=== PATIENT | female | born 1950 | race Caucasian/White ===

== ENCOUNTER 2024-03-04 04:57 | Emergency (ER) | payer MEDICARE, SELFPAY ==
[2024-03-04] VITALS (7 sets, daily range): BP systolic 137–179; BP diastolic 78–96; BMI 24.4
[2024-03-04 05:58] LABS: % Basophils 0.5 % (0-2); % Eosinophils 2.9 % (0-6); % Immature Granulocytes 0.2 % (0-0.5); % Monocytes 8.7 % (1.7-9.3); % Neutrophils 68.7 % (42.2-75.2); Absolute Eosinophils 0.2 10^3/uL (0-0.7); Absolute Lymphocytes 1.2 10^3/uL (1.2-3.4); Absolute Monocytes 0.6 10^3/uL (0.1-0.6); Absolute Neutrophils 4.3 10^3/uL (1.4-6.5); Hematocrit 38.9 % (37.0-47.0); Hemoglobin 13.6 g/dL (12.0-16.0); Mean Corpuscular Hgb 31.3 pg (27.0-31.0); Mean Corpuscular Volume 89.4 fL (81.0-99.0); Mean Platelet Volume 10.3 fL (7.4-10.4); Nucleated Red Blood Cells % 0 %; Platelet Count 263 10^3/uL (130-400); Red Blood Cell Count 4.35 10^6/uL (4.20-5.40); Red Cell Dist. Width 11.9 % (11.5-14.5); White Blood Cell Count 6.3 10^3/uL (4.8-10.8)
[2024-03-04 06:06] LABS: Urine Albumin Negative (Neg - Trace); Urine Bilirubin Negative (Negative); Urine Character Clear (Clear); Urine Color Yellow; Urine Glucose Negative (Negative); Urine Ketone Negative (Negative); Urine Leukocyte 1+ (Negative); Urine Nitrite Negative (Negative); Urine Occult Blood 2+ (Negative); Urine Urobilinogen Negative (Neg - 1+)
[2024-03-04 06:20] LABS: Urine Bacteria Few (Negative); Urine Red Blood Cell 0-2 /HPF (0-2)
--- NOTE | 2024-03-04 06:21 | ED.GENMED ---
History of Present Illness
General
Chief Complaint: Breathing Problem
Source: patient
Time Seen by Provider: 03/04/24 06:01
Travel History
Have you had any contact with someone who has COVID-19?: No
Do you have any symptoms of coronavirus? Fever > 100 degrees, chills, cough, shortness of breath, sore throat, loss of taste or smell, muscle aches, or headache?: No
History of Present Illness
History of Present Illness:
73-year-old female presents emergency room complaining of feeling unwell this morning. She is recovering from a surgical procedure performed on February 06. It was performed at [facility] by a 'pelvic hardwood flooring specialist'. Patient had pelvic floor
sling performed several years ago. After that surgery she had multiple urinary tract infections that was negatively affecting her quality of life. She had a 'release' of this procedure on February 06 with the injection of a bulking agent called
Bulkamid. Since the operation the patient had pelvic fullness and discomfort. She denies any nausea or vomiting. She was seen at an urgent care recently for this pelvic floor pressure and started on Macrobid. This morning when the patient awoke
to take her Macrobid at 4 AM she had an overwhelming sense of anxiety and had something terrible was happening. She thought she was going to . She needed to come get checked out. The only way she can describe the episode was that everything
was slowing down. Currently she has no chest pain, no shortness of breath, no nausea. She does continue to have pelvic fullness.
Past History
Social History
Tobacco: Non-smoker
Alcohol: Occasional
Drug: None
Personal:
Living: with family
Employment: Employed
Family History
Family History: Other (Birthmother with thoracic aneurysm) and Adopted
Phy Exam
Physical Exam
Physical Exam:
General: Awake, Alert, Oriented X3. No acute distress.
Vitals: unremarkable
Head: Atraumatic
Eyes: Pupils equal, EOMI
Throat: Airway intact, no exudates
Neck: Trachea midline
Lungs: Clear and equal b/l
Heart: Regular rate, no murmurs
Abd: Soft, tenderness bilateral lower abdomen, No pulsatile mass
Neuro: Nonfocal
Skin: Warm, dry, no rash
Extremities: pulses equal b/l, no edema
Scores
Heart Failure Risk
Heart Failure Risk Score: Not Applicable
Course
Orders/Labs/Results
Orders:
Orders
03/04/24 05:41
CMP [Comprehensive Metabolic Panel] Urgent
Complete Blood Count/With Diff Urgent
Urinalysis Reflex To Culture Urgent
Date Specimen was Collected: 03/04/24
Time Specimen was Collected: 05:40
Urine Microscopic Reflex Cult Urgent
Urine Culture Urgent
KM Source: U
Specimen Description:
Date Specimen was Collected: 03/04/24
Time Specimen was Collected: 05:40
03/04/24 06:19
CT Abd/pel W Iv And Oral Contr Urgent
Comment:
Reason For Exam: pelvic pain s/p sling release with inj of Bulkamid
Iohexol [Omnipaque] See Protocol PO NOW STA
Abnormal Lab Results
03/04/24
05:41
MCH 31.3 H pg
(27.0-31.0)
Lymphocytes % 19.0 L %
(20.5-51.1)
Ur Occult Blood Reflex 2+ A
(Negative)
Leukocyte Esterase Rfl 1+ A
(Negative)
Urine Bacteria (Reflex) Few A
(Negative)
03/04/24 05:41
03/04/24 05:41
Vital Signs
Initial and Last Documented VS:
Initial Vital Signs
Temp Pulse Resp BP Pulse Ox
98 F 80 24 178/96 98
03/04/24 04:59 03/04/24 04:59 03/04/24 04:59 03/04/24 04:59 03/04/24 04:59
Last Documented Vital Signs
Temp Pulse Resp BP Pulse Ox
98 F 72 17 137/85 94
03/04/24 04:59 03/04/24 10:06 03/04/24 10:06 03/04/24 10:06 03/04/24 10:06
MDM/Problems Addressed
Differential Diagnosis Includes:
uti, constipation, post-op infection, anxiety attack
MDM/Problems Addressed:
Patient presents with pelvic pain. She has a complicated history as noted. Currently she is afebrile. Signs are normal. Labs are reassuring. CT with IV and oral contrast does not show any evidence for acute abnormality. Patient stable for
discharge home. I would continue the course of antibiotics that was started. The urine here fortunately is not highly suggestive of a urinary tract infection.
*Radiology
Radiology exam reviewed: radiology read reviewed
*Pulse Oximetry
Patient hypoxic: no
*Critical Care Note
Total Time (30-74mins, 75-104mins- exclusive of procedures): Not Applicable
Patient Management
Social determinants of health affecting care: Strong social support
ED Attending Note
-
Portions of this chart may have been created with voice recognition software.� Occasional wrong word or��sound alike� substitutions may have occurred due to the inherent limitations of voice recognition software.
Discharge Plan
Departure
Patient Disposition: Home (Routine Discharge)
Date of Disposition: 03/04/24
Time of Disposition: 10:10
Patient with high blood pressure during this ER visit?: Yes
Condition: Good
Discharge Problem:
Acute pelvic pain, female
Instructions: Pelvic Pain (DC)
Prescriptions:
No Action
levothyroxine [Levoxyl] 50 MCG tablet
50 mcg PO DAILY
losartan [Cozaar] 100 MG tablet
100 mg PO DAILY
Nature-Throid 16.25 MG tablet
65 mg PO DAILY
albuterol sulfate [Proventil HFA] 90 MCG/PUFF HFA aerosol inhaler
1 puff inhalation Q4HPRN PRN (Reason: shortness of breath) Qty: 1 0RF
levofloxacin 500 MG tablet
500 mg PO DAILY Qty: 9 0RF
methylprednisolone [Medrol (Arsh)] 4 MG tablets,dose pack
4 tab PO . DIRECT Qty: 1 0RF
amlodipine
2.5 mg PO DAILY
nitrofurantoin
100 mg PO BID
tamsulosin
0.4 mg PO DAILY
Referrals:
PRIVATE,PHYSICIAN [Family Provider] -
Activity Restrictions/Additional Instructions:
Contact the surgeon who performed your procedure.
Interventions
Interventions:
*Risk Screen - Suicide Last Done: 03/04/24 04:59
*General Assessment Last Done: 03/04/24 05:57
*Neglect/Abuse Screening Last Done: 03/04/24 04:59
ED- Fall Risk Assessment Last Done: 03/04/24 06:38
*ED COVID-19 Vaccine History Last Done: 03/04/24 05:58
*Nursing Disposition Last Done: 03/04/24 10:32
FQ-Etqnyw-Eewbuprsem Assessment Last Done: 03/04/24 05:56
ED- Cardiac Assessment Last Done: 03/04/24 05:37
ED- Pulmonary Assessment Last Done: 03/04/24 05:55
Discharge Date and Time
Discharge Date/Time: 03/04/24 10:33
Print Language: Citizen Of [place]
[2024-03-04 06:26] LABS: ALT (SGPT) 17 U/L (0-35); AST (SGOT) 22 U/L (14-36); Albumin 4.4 g/dl (3.5-5.0); Alkaline Phosphatase 79 U/L (38-126); Blood Urea Nitrogen 17 mg/dl (7-17); Calcium 9.7 mg/dl (8.4-10.2); Carbon Dioxide 22 mmol/L (22-30); Chloride 107 mmol/L (98-107); Estimated Creatinine Clearance 90 ml/min; Glucose 97 mg/dl (70-99); Potassium 4.2 mmol/L (3.5-5.1); Sodium 137 mmol/L (135-145); Total Bilirubin 0.8 mg/dl (0.2-1.3); eGFR > 60.00
[2024-03-04] MEDS: OMNIPAQUE 50 ML PO (06:32)
== END 2024-03-04 10:33 | disposition home or self-care (01) ==
LOC: EMR 04:57
PROVIDERS: Student in an Organized Health Care Education/Training Program; EMERGENCY PHYSICIAN Emergency Medicine
DX: R10.2 Pelvic and perineal pain (principal); R03.0 Elevated blood-pressure reading, without diagnosis of hypertension; F41.9 Anxiety disorder, unspecified; Z87.440 Personal history of urinary (tract) infections; Z98.890 Other specified postprocedural states; Z88.2 Allergy status to sulfonamides; Z88.8 Allergy status to other drugs, medicaments and biological substances
CPT/HCPCS: 99285; 74177; 80053; 81003; 81015; 85025; 87077; 87086; Q9967